=== PATIENT | female | born 1975 | race Caucasian/White ===

== ENCOUNTER 2021-01-06 11:25 | Emergency (ER) | payer MEDICAID, OTHER ==
[~2021-01-06] VITALS: Ht 167.6 cm; Wt 101.4 kg
[2021-01-06] MEDS ORDERED: IV NORMAL SALINE 1,000ML 1,000 ML IV ONE (12:15)
[2021-01-06] MEDS ORDERED: ONDANSETRON PF 4 MG/2 ML VIAL. IVP ONE (12:15)
--- NOTE | 2021-01-06 12:20 | PHYS DOC ---
Past History Past Medical History: Other Additional Past Medical Histor: PTSD, RLS Past Surgical History: Cholecystectomy, Other Additional Past Surgical Histo: umbilical hernia Alcohol Use: Occasionally Drug Use: None General Adult EDM: Chief Complaint: FLANK PAIN HPI: HPI: Patient is a 45-year-old female who presents to the ER today for left flank pain that started on Sunday. Patient reports that pain radiates into her left lower quadrant/pelvic. She rates the pain 7 out of 10. No alleviating or aggravating factors. Patient has been taking her 's oxycodone tablets at home. Patient is also reporting nausea. She denies dysuria, hematuria, abdominal pain currently, urinary frequency/urgency, vomiting, diarrhea, fevers. Review of Systems: Review of Systems: 14 body systems of the review of systems have been reviewed. See HPI for pertinent positive and negative responses, otherwise all other systems are negative, nonpertinent or noncontributory Current Medications: Current Meds: Current Medications Medications (Trade) Dose Ordered Sig/Daniela Start Time Stop Time Status Last Admin Dose Admin Fentanyl Citrate (Fentanyl 2ml Vial) 50 mcg 1X ONCE 01/06/21 12:15 01/06/21 12:16 Ondansetron HCl (Zofran) 4 mg 1X ONCE 01/06/21 12:15 01/06/21 12:16 Sodium Chloride 1,000 ml @ 1,000 mls/hr 1X ONCE 01/06/21 12:15 01/06/21 13:14 Allergies: Allergies: Allergies Coded Allergies Type Severity Reaction Last Updated Verified No Known Drug Allergies 02/01/16 No Physical Exam: PE: Constitutional: Well developed, well nourished, no acute distress, non-toxic appearance. [] HENT: Normocephalic, atraumatic Eyes: PERRL, conjunctiva normal, no discharge. [] Neck: Normal range of motion, no stridor Cardiovascular:Heart rate regular rhythm, no murmur [] Lungs & Thorax: Bilateral breath sounds clear to auscultation [] Abdomen: Bowel sounds normal, soft, no masses, no pulsatile masses, tenderness with palpation of left lower quadrant, no rebound tenderness.. [] Skin: Warm, dry, no erythema, no rash. [] Back: No tenderness, positive left-sided CVA tenderness. [] Extremities: No tenderness, no cyanosis, no clubbing, ROM intact, no edema. [] Neurologic: Alert and oriented X 3, normal motor function, normal sensory function, no focal deficits noted. [] Psychologic: Affect normal, judgement normal, mood normal. [] Current Patient Data: Labs: Laboratory Tests Test 01/06/21 11:55 White Blood Count 8.8 x10^3/uL Red Blood Count 5.48 x10^6/uL Hemoglobin 11.0 g/dL Hematocrit 36.5 % Mean Corpuscular Volume 67 fL Mean Corpuscular Hemoglobin 20 pg Mean Corpuscular Hemoglobin Concent 30 g/dL Red Cell Distribution Width 18.1 % Platelet Count 286 x10^3/uL Neutrophils (%) (Auto) 68 % Lymphocytes (%) (Auto) 22 % Monocytes (%) (Auto) 6 % Eosinophils (%) (Auto) 3 % Basophils (%) (Auto) 1 % Neutrophils # (Auto) 6.0 x10^3uL Lymphocytes # (Auto) 2.0 x10^3/uL Monocytes # (Auto) 0.5 x10^3/uL Eosinophils # (Auto) 0.2 x10^3/uL Basophils # (Auto) 0.1 x10^3/uL Platelet Estimate Pending Sodium Level Pending Potassium Level Pending Chloride Level Pending Carbon Dioxide Level 26 mmol/L Anion Gap Pending Blood Urea Nitrogen 10 mg/dL Creatinine 1.4 mg/dL Estimated GFR (Cockcroft-Gault) 40.3 BUN/Creatinine Ratio 7 Glucose Level 132 mg/dL Calcium Level 8.9 mg/dL Total Bilirubin 0.4 mg/dL Aspartate Amino Transf (AST/SGOT) 69 U/L Alanine Aminotransferase (ALT/SGPT) 95 U/L Alkaline Phosphatase 167 U/L Total Protein 8.0 g/dL Albumin 3.5 g/dL Albumin/Globulin Ratio 0.8 Lipase 216 U/L Current Medications Medications (Trade) Dose Ordered Sig/Daniela Route PRN Reason Start Time Stop Time Status Last Admin Dose Admin Sodium Chloride 1,000 ml @ 1,000 mls/hr 1X ONCE IV 01/06/21 12:15 01/06/21 13:14 DC 01/06/21 12:24 Ondansetron HCl (Zofran) 4 mg 1X ONCE IVP 01/06/21 12:15 01/06/21 12:17 DC 01/06/21 12:25 Fentanyl Citrate (Fentanyl 2ml Vial) 50 mcg 1X ONCE IVP 01/06/21 12:15 01/06/21 12:17 DC 01/06/21 12:25 Vital Signs: Vital Signs Date Time Temp Pulse Resp B/P (MAP) Pulse Ox O2 Delivery O2 Flow Rate FiO2 01/06/21 11:37 98.2 101 18 147/82 98 Room Air EKG: EKG: [] Radiology/Procedures: Radiology/Procedures: PROCEDURE: CT ABDOMEN PELVIS WO CONTRAST EXAMINATION: CT abdomen and pelvis without IV contrast. INDICATION:45 years, Female, left flank pain, evaluate for stones. TECHNIQUE: Axial CT images of the abdomen and pelvis were obtained. Coronal and sagittal reformatted performed. COMPARISON: None. Exposure: One or more of the following individualized dose reduction techniques were utilized for this examination: 1. Automated exposure control 2. Adjustment of the mA and/or kV according to patient size 3. Use of iterative reconstruction technique. FINDINGS: LOWER CHEST: Unremarkable ABDOMEN/PELVIS: Mild left hydroureteronephrosis secondary to 0.8 cm obstructing calculus in the distal ureter. Additional, mild periureteric and perinephric fat stranding. Nonobstructing bilateral nephrolithiasis with the largest in the lower pole left kidney measures 0.7 cm. The nonobstructing calculus in the upper pole right kidney measures 0.3 cm. Multifocal left renal cortical scarring. No right hydronephrosis. Simple appearing 6.5 cm cyst exophytic from the lower pole right kidney. Mild hepatomegaly with diffuse steatosis, measures approximately 19.6 cm in length. Peripherally calcified lesion in the right hepatic dome measures 1.0 cm, favors a sequelae of benign etiology such as calcified cyst. Mild splenomegaly measures up to 14.8 cm in length. Cholecystectomy. No biliary ductal dilatation. No adrenal nodule. Unremarkable pancreas. No bowel obstruction or wall thickening. Normal appendix. Mild aortoiliac atherosclerotic calcifications without dilatation. No pneumoperitoneum or ascites. No abdominopelvic lymphadenopathy by size criteria. Enlarged anteverted uterus. There is a 5.8 x 4.3 cm ill-defined soft tissue mass in the anterior uterine body appears to be displacing endometrium posteriorly. MUSCULOSKELETAL: No acute osseous process. Mild degenerative changes in the lumbar spine. IMPRESSION: 1. Mild left hydroureteronephrosis secondary to 8 mm obstructing calculus in the distal ureter. Mild perinephric and periureteric fat stranding, likely secondary to obstructing process. Consider correlation with urinalysis to exclude superimposed infection. 2. Nonobstructing bilateral nephrolithiasis measuring up to 7 mm in the left. 3. Simple 6.5 cm exophytic right renal cyst. 4. Mild hepatomegaly with diffuse steatosis. 5. Ill-defined 5.8 cm soft tissue mass in the anterior uterine body, appears to be displacing the endometrium posteriorly. Findings suggesting of intramural fibroid. Recommend further evaluation with nonemergent pelvic ultrasound. 6. Other chronic/incidental findings, as described above. Electronically signed by: Britni Caldera MD (01/06/2021 1:07 PM) [id number] DICTATED AND SIGNED BY: BRITNI CALDERA MD DATE: 01/06/21 1256 CC: EMERGENCY,DEPARTMENT; TROY CUTLER MD; BALBIR BELL PATIENT ASSISTANT ~MTH0 0 Heart Score: C/O Chest Pain: No Risk Factors: Risk Factors: DM, Current or recent (<one month) smoker, HTN, HLP, family history of CAD, obesity. Risk Scores: Score 0 - 3: 2.5% MACE over next 6 weeks - Discharge Home Score 4 - 6: 20.3% MACE over next 6 weeks - Admit for Clinical Observation Score 7 - 10: 72.7% MACE over next 6 weeks - Early Invasive Strategies Course & Med Decision Making: Course & Med Decision Making Pertinent Labs and Imaging studies reviewed. (See chart for details) Patient is a 45-year-old female being seen in the ER today for left flank pain. Work-up included blood work, CT scan of abdomen. Patient was treated with a liter of normal saline, Zofran, fentanyl. Patient does not have any elevated white blood cell count. The CT scan of her abdomen showed an 8 mm stone on the left ureter with possible obstructing process developing. During reevvaluation patient, she reports that she continues to have left flank pain. Patient given a dose of Toradol. She is also given an antibiotic. Patient notified of importance of obtaining UA and reports she is unable to urinate at this time, liter of normal saline still infusing. This case was discussed with supervising physician, no urology coverage at this hospital. Patient likely to have to be transferred to a hospital with urology coverage. 1420: I spoke with the transfer team at [facility] and they will be in contact with the urologist to determine if they can take the patient to the OR for stent placement. Images claudicating at this time. 1056: I spoke with transfer team. with urology will be admitting patient to the surgical pre-/post for stent placement. I discussed this with patient and she reports that due to her PTSD and anxiety that she will have to go by private vehicle and is refusing to go by ambulance. Patient is stable at this time she understands the risks associated with going by private vehicle chance that the IV will have to be taken out. Care transferred. Jordon Disclaimer: Jordon Disclaimer: This electronic medical record was generated, in whole or in part, using a voice recognition dictation system. Departure Departure: Impression: Primary Impression: Kidney stone Disposition: 02 SHORT TERM HOSPITAL Condition: GOOD Referrals: TROY CUTLER MD (PCP) BALBIR BELL APRN Jan 06, 2021 12:20
[2021-01-06 12:36] LABS: BASO # 0.1 x10^3/uL (0.0-0.2); BASO % 1 % (0-3); EOS # 0.2 x10^3/uL (0.0-0.7); EOS % 3 % (0-3); HEMATOCRIT 36.5 % (36.0-47.0); LYMPH % 22 % (24-48); MEAN CORPUSCULAR HEMOGLOBIN 20 pg (25-35); MEAN CORPUSCULAR HGB CONC 30 g/dL (31-37); MEAN CORPUSCULAR VOLUME 67 fL (79-100); MONO # 0.5 x10^3/uL (0.0-1.1); MONO % 6 % (0-9); NEUT % 68 % (31-73); PLATELET COUNT 286 x10^3/uL (140-400); RED BLOOD COUNT 5.48 x10^6/uL (3.50-5.40); RED CELL DISTRIBUTION WIDTH 18.1 % (11.5-14.5); WHITE BLOOD COUNT 8.8 x10^3/uL (4.0-11.0)
[2021-01-06 12:40] LABS: ALBUMIN 3.5 g/dL (3.4-5.0); ALBUMIN/GLOBULIN RATIO 0.8 (1.0-1.7); CALCIUM 8.9 mg/dL (8.5-10.1); CREATININE 1.4 mg/dL (0.6-1.0); GFR 40.3; TOTAL BILIRUBIN 0.4 mg/dL (0.2-1.0)
--- NOTE | 2021-01-06 13:09 | RAD ---
EXAMINATION: CT abdomen and pelvis without IV contrast. INDICATION:45 years, Female, left flank pain, evaluate for stones. TECHNIQUE: Axial CT images of the abdomen and pelvis were obtained. Coronal and sagittal reformatted performed. COMPARISON: None. Exposure: One or more of the following individualized dose reduction techniques were utilized for thi s examination: 1. Automated exposure control 2. Adjustment of the mA and/or kV according to patient size 3. Use of iterative reconstruction technique. FINDINGS: LOWER CHEST: Unremarkable ABDOMEN/PELVIS: Mild left hydroureteronephrosis secondary to 0.8 cm obstructing calculus in the distal ureter. Additi onal, mild periureteric and perinephric fat stranding. Nonobstructing bilateral nephrolithiasis with the largest in the lower pole left kidney measures 0.7 cm. The nonobstructing calculus in the upper p ole right kidney measures 0.3 cm. Multifocal left renal cortical scarring. No right hydronephrosis. S imple appearing 6.5 cm cyst exophytic from the lower pole right kidney. Mild hepatomegaly with diffuse steatosis, measures approximately 19.6 cm in length. Peripherally calc ified lesion in the right hepatic dome measures 1.0 cm, favors a sequelae of benign etiology such as calcified cyst. Mild splenomegaly measures up to 14.8 cm in length. Cholecystectomy. No biliary ducta l dilatation. No adrenal nodule. Unremarkable pancreas. No bowel obstruction or wall thickening. Norm al appendix. Mild aortoiliac atherosclerotic calcifications without dilatation. No pneumoperitoneum o r ascites. No abdominopelvic lymphadenopathy by size criteria. Enlarged anteverted uterus. There is a 5.8 x 4.3 cm ill-defined soft tissue mass in the anterior uterine body appears to be displacing endo metrium posteriorly. MUSCULOSKELETAL: No acute osseous process. Mild degenerative changes in the lumbar spine. IMPRESSION: 1. Mild left hydroureteronephrosis secondary to 8 mm obstructing calculus in the distal ureter. Mild perinephric and periureteric fat stranding, likely secondary to obstructing process. Consider correla tion with urinalysis to exclude superimposed infection. 2. Nonobstructing bilateral nephrolithiasis measuring up to 7 mm in the left. 3. Simple 6.5 cm exophytic right renal cyst. 4. Mild hepatomegaly with diffuse steatosis. 5. Ill-defined 5.8 cm soft tissue mass in the anterior uterine body, appears to be displacing the end ometrium posteriorly. Findings suggesting of intramural fibroid. Recommend further evaluation with no nemergent pelvic ultrasound. 6. Other chronic/incidental findings, as described above. Electronically signed by: Darcie Caldera MD (01/06/2021 1:07 PM) [id number]
[2021-01-06] MEDS ORDERED: KETOROLAC 15 MG/ML VIAL. IVP ONE (13:30)
[2021-01-06 13:50] LABS: HYPOCHROMIA MOD; PLT ESTIMATE ADEQUATE (ADEQUATE); POLYCHROMASIA SLIGHT
[2021-01-06 13:51] LABS: ANISOCYTOSIS SLIGHT; MICROCYTOSIS MOD
[2021-01-06] MEDS ORDERED: IV NORMAL SALINE 50ML 50 ML ONE (14:00)
[2021-01-06] MEDS ORDERED: cefTRIAXone SODIUM 1 GM VIAL ONE (14:00)
[2021-01-06 14:44] LABS: POTASSIUM 3.9 mmol/L (3.5-5.1)
[2021-01-06 15:04] VITALS: BP 139/58
== END 2021-01-06 15:20 | disposition short-term general hospital (02) ==
LOC: ER 11:25
DX: N20.0 Calculus of kidney (principal); Z90.49 Acquired absence of other specified parts of digestive tract
CPT/HCPCS: 36415; 74176; 80053; 83690; 85025; 96361; 96365; 96375; 99285; J0696; J1885; J2405; J3010; J7030

== ENCOUNTER → 2021-01-06 | Outpatient (CLI) | payer MEDICAID ==
[~2021-01-06] MED LIST: ACET325T9 PO; HYDR-3165 PO; PENI250T85 PO; VARE1TAB20 PO; [UNRECOGNIZED DRUG - REMARK]
[2021-01-06 11:37] VITALS: BP 147/82
[2021-01-06 23:06] LABS: DHEA SO4 79.5 ug/dL (41.2-243.7); ESTRADIOL LEVEL 110.1 pg/mL (.); FSH 4.3 mIU/mL (.); LUTEINIZING HORMONE 9.1 mIU/mL (.); PROGESTERONE 9.7 ng/mL (.); PROLACTIN 7.8 ng/mL (4.8-23.3)
== END ==
LOC: US 13:34
PROVIDERS: ATTEND Obstetrics & Gynecology
DX: N93.8 Other specified abnormal uterine and vaginal bleeding (principal)
CPT/HCPCS: 36415; 82627; 82670; 83001; 83002; 83525; 84144; 84146; 84402; 84403; 84443

== ENCOUNTER 2021-01-08 15:48 | Emergency (ER) | payer MEDICAID ==
[~2021-01-08] VITALS: Ht 167.6 cm; Wt 103.2 kg
--- NOTE | 2021-01-08 17:05 | PHYS DOC ---
Past History Past Medical History: Other Additional Past Medical Histor: PTSD, RLS (LEYLA GONZALEZ MD) Past Surgical History: Cholecystectomy, Other Additional Past Surgical Histo: umbilical hernia (LEYLA GONZALEZ MD) Alcohol Use: Occasionally Drug Use: None (LEYLA GONZALEZ MD) General Adult EDM: Chief Complaint: FLANK PAIN HPI: HPI: Patient is a 45-year-old female coming in for left flank pain. Patient states that started about 2 hours prior to arrival and comes and goes. Took one of her husbands oxycodones without any improvement. Patient has history significant for a diagnosis of an 8 mm kidney stone diagnosed here 2 days ago, she was transferred to over stent was placed. She was told to come to the emergency department if pain worsens. Denies any fever or chills. Continues to have hematuria that is unchanged. (LEYLA GONZALEZ MD) Review of Systems: Review of Systems: All other systems within normal limits except for as noted in the HPI (LEYLA GONZALEZ MD) Allergies: Allergies: Allergies Coded Allergies Type Severity Reaction Last Updated Verified No Known Drug Allergies 02/01/16 No (LEYLA GONZALEZ MD) Physical Exam: PE: Constitutional: Well developed, well nourished, no acute distress, non-toxic appearance. [] HENT: Normocephalic, atraumatic, bilateral external ears normal, nose normal. [] Eyes: PERRLA, conjunctiva normal, no discharge. [] Neck: No rigidity, supple, no stridor. [] Cardiovascular: Regular rate and rhythm, brisk cap refill [] Lungs & Thorax: Non labored symmetric respirations, no tachypnea or respiratory distress [] Abdomen: Soft, nondistended. Skin: Warm, dry, no erythema, no rash. [] Back: Unremarkable, left lower back tenderness Extremities: No deformities, range of motion grossly intact, no lower extremity edema [] Neurologic: Alert and oriented X 3, no focal deficits noted. [] Psychologic: Affect normal, judgement normal, mood normal. [] (LEYLA GONZALEZ MD) Current Patient Data: Vital Signs: Vital Signs Date Time Temp Pulse Resp B/P (MAP) Pulse Ox O2 Delivery O2 Flow Rate FiO2 01/08/21 16:36 98.7 104 20 151/104 99 Room Air (LEYLA GONZALEZ MD) EKG: EKG: [] (LEYLA GONZALEZ MD) Radiology/Procedures: Radiology/Procedures: [address] [address] IMAGING REPORT Signed PATIENT: TROY SORTO ACCOUNT: [id number] : 1975 LOCATION: ER AGE: 45 SEX: F EXAM STATUS: REG ER ORD. PHYSICIAN: LEYLA GONZALEZ MD REASON: worse pain left flank, h/o stone, s/p stent PROCEDURE: CT ABDOMEN PELVIS WO CONTRAST Exam: CT of abdomen and pelvis without contrast INDICATION: Worsening pain, left flank, status post TECHNIQUE: Sequential axial images through the abdomen and pelvis obtained without IV contrast. Sagittal and coronal reformatted images were reconstructed from the axial data and reviewed. Exposure: One or more of the following in the visualized dose reduction techniques were utilized for this examination: 1. Automated exposure control 2. Adjustment of the MA and/or KV according to patient size 3. Use of iterative of reconstructive technique Comparisons: CT 01/06/2021 FINDINGS: Heart size is normal. No pericardial effusion. Visualized lung bases are clear. No pleural effusion. Evaluation of solid organs is limited secondary to noncontrast technique. Mild diffuse hepatic steatosis. Spleen, pancreas and adrenals are unremarkable. Gallbladder surgically absent. There is a left-sided nephroureteral stent. Nonobstructing renal calculi noted bilaterally. There is ureteral calculus at the distal left ureter which measures approximately 5 mm. Right renal cyst is again seen. Bladder is decompressed not well evaluated. Uterus is unchanged. No abnormal adnexal mass. Large and small bowel are unremarkable. Appendix is nonidentified. No free intra-abdominal air or fluid. No obstruction. Abdominal aorta has a normal course and caliber. No enlarged intra-abdominal lymph nodes are identified. No suspicious osseous lesions or acute fractures. IMPRESSION: 1. Interval placement of a left-sided nephroureteral stent. There is a persistent 5 mm calculus the distal left ureter. 2. Remainder of the exam is unchanged. Electronically signed by: Flora Tran MD (01/08/2021 5:37 PM) [facility] DICTATED AND SIGNED BY: FLORA TRAN MD DATE: 01/08/21 2868 CC: LEYLA GONZALEZ MD; TROY CUTLER MD ~MTH0 0 [] (LEYLA GONZALEZ MD) Heart Score: C/O Chest Pain: No Risk Factors: Risk Factors: DM, Current or recent (<one month) smoker, HTN, HLP, family history of CAD, obesity. Risk Scores: Score 0 - 3: 2.5% MACE over next 6 weeks - Discharge Home Score 4 - 6: 20.3% MACE over next 6 weeks - Admit for Clinical Observation Score 7 - 10: 72.7% MACE over next 6 weeks - Early Invasive Strategies (LEYLA GONZALEZ MD) Course & Med Decision Making: Course & Med Decision Making Pertinent Labs and Imaging studies reviewed. (See chart for details) [] (LEYLA GONZALEZ MD) Course & Med Decision Making Patient care handed off to me at checkout pending CT. CT shows interval placement of left-sided stent with a 5 mm calculus in the distal left ureter. Vital signs not concerning. Urine with moderate bacteria and large leuk esterase, either secondary to stent placement or infection will treat with antibiotics. Started antibiotics in the ED. Pain controlled in the emergency department. Patient stated that she was feeling much better and wanted to be discharged home despite labs pending. Given instructions on pain management and nausea management for home. Advised to continue her antibiotic use as prescribed from her urologist. Advised to call her urologist first thing Sunday morning to update on her ED visit and set up a follow-up appointment as soon as possible. Gave strict return precautions to the ED. Patient grateful, verbalized understanding and agreed with plan of discharge. (JENNIFER MONZON MD) Dragon Disclaimer: Dragon Disclaimer: This electronic medical record was generated, in whole or in part, using a voice recognition dictation system. (LEYLA GONZALEZ MD) Departure Departure: Impression: Primary Impression: Flank pain Additional Impression: Ureterolithiasis Disposition: HOME / SELF CARE / HOMELESS Condition: GOOD Referrals: TROY CUTLER MD (PCP) Patient Instructions: Diet for Kidney Stones, Kidney Stones Additional Instructions: Thank you for coming into the emergency department today and allowing us to take care of you. Please read all of the attached information very carefully to go back over what we discussed. As we discussed continue to take your antibiotics given to you by your urologist as prescribed. You can use Tylenol and your oral pain medicine given to you in the emergency department as needed for pain control. Please stay hydrated. Please call your primary care physi rtacey/urologist on Sunday to update on your ED visit and set up a follow- up visit as soon as you can. Please come back to the ED with new or concerning symptoms as discussed. LEYLA GONZALEZ MD Jan 08, 2021 17:05 JENNIFER MOZNON MD Jan 08, 2021 19:14
--- NOTE | 2021-01-08 17:39 | RAD ---
Exam: CT of abdomen and pelvis without contrast INDICATION: Worsening pain, left flank, status post TECHNIQUE: Sequential axial images through the abdomen and pelvis obtained without IV contrast. Sagit isaura and coronal reformatted images were reconstructed from the axial data and reviewed. Exposure: One or more of the following in the visualized dose reduction techniques were utilized for this examination: 1. Automated exposure control 2. Adjustment of the MA and/or KV according to patient size 3. Use of iterative of reconstructive technique Comparisons: CT 01/06/2021 FINDINGS: Heart size is normal. No pericardial effusion. Visualized lung bases are clear. No pleural effusion. Evaluation of solid organs is limited secondary to noncontrast technique. Mild diffuse hepatic steatosis. Spleen, pancreas and adrenals are unremarkable. Gallbladder surgicall y absent. There is a left-sided nephroureteral stent. Nonobstructing renal calculi noted bilaterally. There is ureteral calculus at the distal left ureter which measures approximately 5 mm. Right renal cyst is ag ain seen. Bladder is decompressed not well evaluated. Uterus is unchanged. No abnormal adnexal mass. Large and small bowel are unremarkable. Appendix is nonidentified. No free intra-abdominal air or flu id. No obstruction. Abdominal aorta has a normal course and caliber. No enlarged intra-abdominal lymph nodes are identified. No suspicious osseous lesions or acute fractures. IMPRESSION: 1. Interval placement of a left-sided nephroureteral stent. There is a persistent 5 mm calculus the distal left ureter. 2. Remainder of the exam is unchanged. Electronically signed by: Flora Danielson MD (01/08/2021 5:37 PM) [facility]
[2021-01-08 17:55] LABS: BILIRUBIN,URINE NEG (NEG); CLARITY,URINE HAZY; COLOR,URINE AMBER; GLUCOSE,URINE NEG (NEG); NITRITE,URINE NEG (NEG); UROBILINOGEN,URINE 0.2 mg/dL (0.2 mg/dL)
[2021-01-08 17:58] LABS: BACTERIA,URINE MOD /HPF (0-FEW); RBC,URINE TNTC /HPF (0-2); SQUAMOUS EPITHELIAL CELL,UR FEW /LPF
[2021-01-08] MEDS ORDERED: KETOROLAC 15 MG/ML VIAL. IVP ONE (19:15)
[2021-01-08] MEDS ORDERED: MORPHINE SULFATE 4 MG/ML DISP.SYRIN. IV ONE (19:15)
[2021-01-08 19:28] VITALS: BP 128/75
[2021-01-08] MEDS ORDERED: HYDROcodone/APAP 5/325MG 1 TAB TABLET PO ONE (19:30)
== END 2021-01-08 19:29 | disposition home or self-care (01) ==
LOC: ER 15:48
DX: N20.1 Calculus of ureter (principal); Z90.49 Acquired absence of other specified parts of digestive tract
CPT/HCPCS: 74176; 81001; 87086; 96374; 96375; 99284; J1885; J2270; J3010